=== PATIENT | female | born 1965 | race African-American/Black ===

== ENCOUNTER 2019-05-09 10:16 | Inpatient (IN) | payer OTHER ==
[2019-05-09 10:35] VITALS: BMI 22.1
--- NOTE | 2019-05-09 11:28 | HP ---
CIWA Score Nausea/Vomitin Muscle Tremors: 2 Anxiety: 0-No Anxiety, at Ease Agitation: 2 Paroxysmal Sweats: No Perspiration Orientation: 0-Oriented Tacttile Disturbances: 0-None Auditory Disturbances: 0-None Visual Disturbances: 0-None Headache: 4-Moderately Severe CIWA-Ar Total Score: 10 - Admission Criteria OASAS Guidelines: Admission for Medically Managed Detox: Requires at least one of the followin. CIWA greater than 12 2. Seizures within the past 24 hours 3. Delirium tremens within the past 24 hours 4. Hallucinations within the past 24 hours 5. Acute intervention needed for co occurring medical disorder 6. Acute intervention needed for co occurring psychiatric disorder 7. Severe withdrawal that cannot be handled at a lower level of care (continued vomiting, continued diarrhea, abnormal vital signs) requiring intravenous medication and/or fluids 8. Admission ROS [facility] - HPI Allergies/Adverse Reactions: Allergies Allergy/AdvReac Type Severity Reaction Status Date / Time No Known Allergies Allergy Verified 05/09/19 10:30 History of Present Illness: pt here requesting detox from etoh use , reports 1 case of beer x 2 years , latest use yesterday , starts drinking in the mornings , denies seizures, blackouts , denies tremors , current symptoms as above , referred by outpt program [facility] . cocaine : 100 $/ day via inhalation x 10 years tobacco : 1 cig/day PMHX : denies PSHX : denies meds - denies Psych : denies Exam Limitations: No Limitations - Ebola screening Have you traveled outside of the country in the last 21 days: No Have you had contact with anyone from an Ebola affected area: No Do you have a fever: No - Review of Systems Constitutional: No Symptoms Reported EENT: reports: Other (glasses dentures upper and lower) Respiratory: reports: No Symptoms reported Cardiac: reports: No Symptoms Reported GI: reports: See HPI : reports: No Symptoms Reported Musculoskeletal: reports: No Symptoms Reported Integumentary: reports: No Symptoms Reported Neuro: reports: Headache Endocrine: reports: No Symptoms Reported Psychiatric: reports: Orientated x3, Agitated Patient History - Smoking Cessation Smoking history: Current some day smoker Have you smoked in the past 12 months: Yes Hx Chewing Tobacco Use: No Initiated information on smoking cessation: No - Substances abused Alcohol Substance route: Oral Frequency: Daily Amount used: 48 16oz can of beers Age of first use: 16 Date of last use: 05/08/19 Crack Substance route: Smoking Frequency: Daily Amount used: $100/day Age of first use: 24 Date of last use: 05/08/19 Admission Physical Exam BHS - Vital Signs Vital Signs: Vital Signs - 24 hr 05/09/19 05/09/19 10:26 11:00 Temperature 97.4 F L 97.4 F L Pulse Rate 77 77 Respiratory 19 19 Rate Blood Pressure 169/97 169/97 - Physical General Appearance: Yes: Mild Distress HEENTM: Yes: EOMI, Hearing grossly Normal, Normocephalic, Normal Voice Respiratory: Yes: Lungs Clear, Normal Breath Sounds, No Respiratory Distress, No Accessory Muscle Use Neck: Yes: No masses,lesions,Nodules, Trachea in good position Cardiology: Yes: Regular Rhythm, Regular Rate, S1, S2 Abdominal: Yes: Non Tender, Soft Musculoskeletal: Yes: Gait Steady Extremities: Yes: Normal Range of Motion, Non-Tender, Tremors Neurological: Yes: Fully Oriented, Alert, Motor Strength 5/5 Integumentary: Yes: Warm - Diagnostic (1) Alcohol use disorder Current Visit: Yes Status: Acute (2) Cocaine dependence Current Visit: Yes Status: Chronic Qualifiers: Substance use status: uncomplicated Qualified Code(s): F14.20 - Cocaine dependence, uncomplicated Breathalyzer - Breathalyzer Breathalyzer: 0 Urine Drug Screen - Test Device Lot number: [id number] Expiration date: 01/18/19 - Control Is test valid?: Yes - Results Drug screen NEGATIVE: No Urine drug screen results: GIA-Cocaine Inpatient Rehab Admission - Rehab Decision to Admit Inpatient rehab admission?: No
[2019-05-09] MEDS ORDERED: IBUPROFEN 400 MG TABLET (FP) PO PRN (11:39)
[2019-05-09] MEDS ORDERED: MAGNESIUM CITRATE 300 ML BOTTLE PO PRN (11:39)
[2019-05-09] MEDS ORDERED: BISMUTH SUBSALICYLATE 524 MG/30 ML UD PO PRN (11:39)
[2019-05-09] MEDS ORDERED: MAG HYDROX/AL HYDROX/SIMETH 30 ML UNIT-DOSE CUP PO PRN (11:39)
[2019-05-09] MEDS ORDERED: MAGNESIUM HYDROX 2400MG/30ML ORAL SUSPENSION 30 ML CUP PO PRN (11:39)
[2019-05-09] MEDS ORDERED: MENTHOL/PHENOL 1 EACH UD MM PRN (11:39)
[2019-05-09] MEDS ORDERED: hydrOXYzine PAMOATE 25 MG CAPSULE (FP) PO PRN (11:39)
[2019-05-09] MEDS ORDERED: MELATONIN 5 MG TABLETS PO PRN (11:39)
[2019-05-09] MEDS ORDERED: ACETAMINOPHEN 325 MG TABLET (FP) PO PRN ×2 (11:39)
[2019-05-09] MEDS ORDERED: diazePAM 5 MG TABLET PO PRN (11:40)
[2019-05-09] MEDS: diazePAM 5 MG TABLET PO SCH ×2 (14:50→22:56)
[2019-05-09] MEDS ORDERED: THIAMINE HCL 100 MG TABLET (FP) PO SCH (22:00)
[2019-05-10] MEDS: diazePAM 5 MG TABLET PO SCH ×3 (06:41→08:20)
--- NOTE | 2019-05-10 09:16 | PN ---
S CIWA - CIWA Score Nausea/Vomitin Muscle Tremors: 2 Anxiety: 2 Agitation: 2 Paroxysmal Sweats: 1-Minimal Palms Moist Orientation: 0-Oriented Tacttile Disturbances: 0-None Auditory Disturbances: 0-None Visual Disturbances: 0-None Headache: 2-Mild CIWA-Ar Total Score: 11 BHS Progress Note (SOAP) Subjective: alert,irritable,anxious,interrupted sleep,tremor Objective: 05/10/19 09:17 Vital Signs Temperature 97.7 F 05/10/19 07:26 Pulse Rate 73 05/10/19 07:26 Respiratory Rate 18 05/10/19 07:26 Blood Pressure 145/86 05/10/19 07:26 O2 Sat by Pulse Oximetry (%) labs pending Assessment: 05/10/19 09:18 withdrawal symptom 05/10/19 09:18 Plan: continue detox librium regimen
[2019-05-10] MEDS ORDERED: chlordiazePOXIDE HCL 25 MG CAPSULE PO PRN (09:38)
--- NOTE | 2019-05-10 09:41 | PN ---
BHS Progress Note Note: patient is heavy alcohol dependence,,regimen changed from valium to librium
[2019-05-10] MEDS ORDERED: PRENATAL VITAMINS W/ FOLIC ACID TABLET (FP) PO SCH (10:00)
[2019-05-10] MEDS: chlordiazePOXIDE HCL 25 MG CAPSULE PO SCH ×2 (10:10→18:16)
[2019-05-10 10:12] LABS: HEMATOCRIT 35.7 % (32.4-45.2); HEMOGLOBIN 10.8 GM/dL (10.7-15.3); MCH 20.1 pg (25.7-33.7); MCHC 30.3 g/dl (32.0-36.0); MEAN CELL VOLUME 66.3 fl (80-96); MEAN PLT VOLUME 8.7 fl (7.5-11.1); PLATELET COUNT 300 K/MM3 (134-434); RBC 5.39 M/mm3 (3.60-5.2); RDW 21.7 % (11.6-15.6); WHITE BLOOD COUNT 5.1 K/mm3 (4.0-10.0)
[2019-05-10 10:25] LABS: ALBUMIN 3.2 g/dl (3.4-5.0); BILIRUBIN,TOTAL 0.5 mg/dL (0.2-1); BLOOD UREA NITROGEN 15.3 mg/dL (7-18); CALCIUM 9.4 mg/dL (8.5-10.1); POTASSIUM 4.3 mmol/L (3.5-5.1)
[2019-05-10 17:25] VITALS: BP 143/89; PULSE 71; TEMP 97.2
--- NOTE | 2019-05-10 18:33 | DS ---
[facility] Detox Discharge Summary Admission Date: 05/09/19 Discharge Date: 05/10/19 - History Present History: Alcohol Dependence, Cocaine Dependence Pertinent Past History: NICOT[facility] DEP - Physical Exam Results Vital Signs: Vital Signs Temperature 97.2 F L 05/10/19 17:25 Pulse Rate 71 05/10/19 17:25 Respiratory Rate 18 05/10/19 17:25 Blood Pressure 143/89 05/10/19 17:25 O2 Sat by Pulse Oximetry (%) Pertinent Admission Physical Exam Findings: WITHDRAWAL SX'S Laboratory Tests 05/10/19 05/10/19 05/10/19 07:00 07:00 07:00 WBC 5.1 RBC 5.39 H Hgb 10.8 Hct 35.7 MCV 66.3 L MCH 20.1 L MCHC 30.3 L RDW 21.7 H Plt Count 300 MPV 8.7 Sodium 140 Potassium 4.3 Chloride 106 Carbon Dioxide 30 Anion Gap 5 L BUN 15.3 Creatinine 1.0 Est GFR (CKD-EPI)AfAm 75.01 Est GFR (CKD-EPI)NonAf 64.72 Random Glucose 120 H Calcium 9.4 Total Bilirubin 0.5 AST 19 ALT 21 Alkaline Phosphatase 82 Total Protein 7.0 Albumin 3.2 L RPR Titer Nonreactive - Treatment Hospital Course: Discharged Condition Good Patient has Accepted a Rehab Referral to: [facility] - Medication Discharge Medications: Ambulatory Orders NK [No Known Home Medication] 05/09/19 - Diagnosis (1) Alcohol use disorder Current Visit: Yes Status: Chronic (2) Cocaine dependence Current Visit: Yes Status: Chronic Qualifiers: Substance use status: uncomplicated Qualified Code(s): F14.20 - Cocaine dependence, uncomplicated - AMA Did Patient Leave Against Medical Advice: Yes
[2019-05-11] MEDS ORDERED: diazePAM 5 MG TABLET PO ONE (06:00)
[2019-05-12] MEDS ORDERED: chlordiazePOXIDE HCL 25 MG CAPSULE PO SCH (05:00)
[2019-05-13] MEDS ORDERED: chlordiazePOXIDE HCL 10 MG CAPSULE PO PRN
[2019-05-13] MEDS ORDERED: chlordiazePOXIDE HCL 10 MG CAPSULE PO SCH (05:00)
[2019-05-14] MEDS ORDERED: chlordiazePOXIDE HCL 10 MG CAPSULE PO SCH (05:00)
[2019-05-15] MEDS ORDERED: chlordiazePOXIDE HCL 10 MG CAPSULE PO ONE (05:00)
== END 2019-05-10 18:28 | disposition left against medical advice (07) | DRG 770 ==
LOC: YASAS 10:16 → Y6N 12:29
PROVIDERS: ADMIT Surgery; ATTEND Surgery
PROC: HZ2ZZZZ Detoxification Services for Substance Abuse Treatment (ICD-10-PCS; principal; 2019-05-09)
DX: F10.230 Alcohol dependence with withdrawal, uncomplicated (principal); F14.20 Cocaine dependence, uncomplicated; F17.200 Nicotine dependence, unspecified, uncomplicated
CPT/HCPCS: 36415; 80053; 81025; 85027; 86593

== ENCOUNTER 2019-06-14 09:42 | Inpatient (IN) | payer OTHER ==
[2019-06-14 09:59] VITALS: BMI 24.7
--- NOTE | 2019-06-14 11:02 | HP ---
CIWA Score Nausea/Vomitin-No Nausea/No Vomiting Muscle Tremors: 1-None Visible, but [place] Anxiety: 2 Agitation: 2 Paroxysmal Sweats: No Perspiration Orientation: 0-Oriented Tacttile Disturbances: 0-None Auditory Disturbances: 0-None Visual Disturbances: 0-None Headache: 0-None Present CIWA-Ar Total Score: 5 - Admission Criteria OASAS Guidelines: Admission for Medically Managed Detox: Requires at least one of the followin. CIWA greater than 12 2. Seizures within the past 24 hours 3. Delirium tremens within the past 24 hours 4. Hallucinations within the past 24 hours 5. Acute intervention needed for co occurring medical disorder 6. Acute intervention needed for co occurring psychiatric disorder 7. Severe withdrawal that cannot be handled at a lower level of care (continued vomiting, continued diarrhea, abnormal vital signs) requiring intravenous medication and/or fluids 8. Admitting History and Physical - Smoking History Smoking history: Current some day smoker Have you smoked in the past 12 months: Yes Aproximately how many cigarettes per day: 1 Admission ROS [facility] Allergies/Adverse Reactions: Allergies Allergy/AdvReac Type Severity Reaction Status Date / Time No Known Allergies Allergy Verified 06/14/19 09:54 History of Present Illness: pt here requesting detox from etoh use , reports 1 case of beer x 2 years , latest use this morning , starts drinking in the mornings , denies seizures , blackouts , denies tremors , current symptoms as above , referred by outpt program [facility] [place] will be transferred to [place] due to failure of tx . cocaine : 100 $/ day via inhalation x 10 years tobacco : 1 cig/day PMHX : denies PSHX : denies meds - denies Psych : denies Exam Limitations: No Limitations - Ebola screening Have you traveled outside of the country in the last 21 days: No (N) Have you had contact with anyone from an Ebola affected area: No Do you have a fever: No - Review of Systems Constitutional: No Symptoms Reported EENT: reports: Other (glasses , dentures) Respiratory: reports: No Symptoms reported Cardiac: reports: No Symptoms Reported GI: reports: No Symptoms Reported : reports: No Symptoms Reported Musculoskeletal: reports: No Symptoms Reported Integumentary: reports: No Symptoms Reported Neuro: reports: No Symptoms reported Endocrine: reports: No Symptoms Reported Psychiatric: reports: Orientated x3, Anxious Patient History - Patient Medical History Hx Asthma: Yes Hx Chronic Obstructive Pulmonary Disease (COPD): No Hx Cardiac Disorders: No Hx Hypertension: No Hx Seizures: No Hx Diabetes: No Hx Gastrointestinal Disorders: No Hx Genitourinary Disorders: No Hx Sexually Transmitted Disorders: No Hx Renal Disease (ESRD): No Hx Depression: No Hx Suicide Attempt: No Hx Schizophrenia: No - Patient Surgical History Past Surgical History: Yes - Smoking Cessation Smoking history: Current some day smoker Have you smoked in the past 12 months: Yes Aproximately how many cigarettes per day: 1 Hx Chewing Tobacco Use: No Initiated information on smoking cessation: No - Substances abused Alcohol Substance route: Oral Frequency: Daily Amount used: 48 16oz can of beers Age of first use: 16 Date of last use: 06/14/19 Crack Substance route: Smoking Frequency: Daily Amount used: $100-$200 Age of first use: 24 Date of last use: 06/13/19 Admission Physical Exam [facility] - Vital Signs Vital Signs: Vital Signs - 24 hr 06/14/19 09:48 Temperature 97.4 F L Pulse Rate 64 Respiratory 16 Rate Blood Pressure 159/102 H - Physical General Appearance: Yes: Mild Distress, Alcohol on Breath, Intoxicated, Anxious HEENTM: Yes: EOMI, Hearing grossly Normal, Normocephalic, Normal Voice, Other ( edentulous) Respiratory: Yes: Chest Non-Tender, Lungs Clear, Normal Breath Sounds, No Respiratory Distress, No Accessory Muscle Use Neck: Yes: No masses,lesions,Nodules, Trachea in good position Cardiology: Yes: Regular Rhythm, Regular Rate, S1, S2 Abdominal: Yes: Non Tender, Soft Musculoskeletal: Yes: Gait Steady Extremities: Yes: Normal Range of Motion, Non-Tender Neurological: Yes: Fully Oriented, Alert, Motor Strength 5/5 Integumentary: Yes: Warm - Diagnostic (1) Alcohol use disorder Current Visit: Yes Status: Chronic (2) Cocaine dependence Current Visit: Yes Status: Chronic Qualifiers: Substance use status: uncomplicated Qualified Code(s): F14.20 - Cocaine dependence, uncomplicated Cleared for Admission S - Detox or Rehab [facility] Level of Care: Observation Bed Breathalyzer - Breathalyzer Breathalyzer: 0 Urine Drug Screen - Test Device Lot number: [id number] Expiration date: 02/17/21 - Control Is test valid?: Yes - Results Drug screen NEGATIVE: No Urine drug screen results: GIA-Cocaine, BZO-Benzodiazepines Inpatient Rehab Admission - Rehab Decision to Admit Inpatient rehab admission?: No - Rehab Admission Criteria Previous failed treatment: No Poor recovery environment: No Lacks judgement: No Patient is meeting Inpatient Rehab admission criteria:: Yes
[2019-06-14] MEDS ORDERED: MAG HYDROX/AL HYDROX/SIMETH 30 ML UNIT-DOSE CUP PO PRN (11:19)
[2019-06-14] MEDS ORDERED: MENTHOL/PHENOL 1 EACH UD MM PRN (11:19)
[2019-06-14] MEDS ORDERED: BISMUTH SUBSALICYLATE 262 MG/15 ML BTL PO PRN (11:19)
[2019-06-14] MEDS ORDERED: ACETAMINOPHEN 325 MG TABLET (FP) PO PRN ×2 (11:19)
[2019-06-14] MEDS ORDERED: hydrOXYzine PAMOATE 25 MG CAPSULE (FP) PO PRN (11:19)
[2019-06-14] MEDS ORDERED: IBUPROFEN 400 MG TABLET (FP) PO PRN (11:19)
[2019-06-14] MEDS ORDERED: MAGNESIUM CITRATE 300 ML BOTTLE PO PRN (11:19)
[2019-06-14] MEDS ORDERED: MAGNESIUM HYDROX 2400MG/30ML ORAL SUSPENSION 30 ML CUP PO PRN (11:19)
[2019-06-14] MEDS ORDERED: diazePAM 5 MG TABLET PO PRN (11:21)
[2019-06-14] MEDS: diazePAM 5 MG TABLET PO SCH ×2 (13:42→22:32)
[2019-06-14] MEDS: MELATONIN 5 MG TABLETS PO PRN (22:32)
[2019-06-14] MEDS: THIAMINE HCL 100 MG TABLET (FP) PO SCH (22:33)
[2019-06-14] MEDS ORDERED: cloNIDine HCL 0.1 MG TABLET PO ONE (23:10)
[2019-06-15] MEDS: diazePAM 5 MG TABLET PO SCH ×3 (06:29→22:35)
[2019-06-15] MEDS: PRENATAL VITAMINS W/ FOLIC ACID TABLET (FP) PO SCH (10:35)
[2019-06-15] MEDS ORDERED: PNEUMOCOCCAL 23 VACCINE 0.5 ML VIAL IM ONE ×2 (12:00→17:00)
[2019-06-15] MEDS ORDERED: PNEUMOC 13-VAL CONJ-DIP CRM/PF 0.5 ML DISP.SYRIN IM ONE (12:00)
[2019-06-15 12:29] LABS: HEMATOCRIT 34.6 % (32.4-45.2); HEMOGLOBIN 10.6 GM/dL (10.7-15.3); MCH 20.7 pg (25.7-33.7); MCHC 30.5 g/dl (32.0-36.0); MEAN CELL VOLUME 67.9 fl (80-96); PLATELET COUNT 251 K/MM3 (134-434); WHITE BLOOD COUNT 4.6 K/mm3 (4.0-10.0)
[2019-06-15 12:34] LABS: ALBUMIN 2.8 g/dl (3.4-5.0); BILIRUBIN,TOTAL 0.4 mg/dL (0.2-1); BLOOD UREA NITROGEN 15.2 mg/dL (7-18); CALCIUM 9.1 mg/dL (8.5-10.1); CREATININE 0.9 mg/dL (0.55-1.3); TOT PROT 6.2 g/dl (6.4-8.2)
--- NOTE | 2019-06-15 13:19 | PN ---
S CIWA - CIWA Score Nausea/Vomitin-No Nausea/No Vomiting Muscle Tremors: None Anxiety: 2 Agitation: 0-Normal Activity Paroxysmal Sweats: 3 Orientation: 0-Oriented Tacttile Disturbances: 0-None Auditory Disturbances: 0-None Visual Disturbances: 0-None Headache: 2-Mild CIWA-Ar Total Score: 7 BHS Progress Note (SOAP) Subjective: c/o anxiety, sweats, and headache. Objective: 06/15/19 13:18 Vital Signs 06/15/19 06/15/19 06:45 08:00 Temperature 97.5 F L 97.7 F Pulse Rate 62 66 Respiratory 17 18 Rate Blood Pressure 132/86 151/98 Lab Results WBC 4.6 K/mm3 (4.0-10.0) 06/15/19 07:55 RBC 5.10 M/mm3 (3.60-5.2) 06/15/19 07:55 Hgb 10.6 GM/dL (10.7-15.3) L 06/15/19 07:55 Hct 34.6 % (32.4-45.2) 06/15/19 07:55 MCV 67.9 fl (80-96) L 06/15/19 07:55 MCHC 30.5 g/dl (32.0-36.0) L 06/15/19 07:55 RDW 20.0 % (11.6-15.6) H 06/15/19 07:55 Plt Count 251 K/MM3 (134-434) 06/15/19 07:55 Sodium 140 mmol/L (136-145) 06/15/19 07:55 Potassium 4.0 mmol/L (3.5-5.1) 06/15/19 07:55 Chloride 104 mmol/L (98-107) 06/15/19 07:55 Carbon Dioxide 28 mmol/L (21-32) 06/15/19 07:55 Anion Gap 8 MMOL/L (8-16) 06/15/19 07:55 BUN 15.2 mg/dL (7-18) 06/15/19 07:55 Creatinine 0.9 mg/dL (0.55-1.3) 06/15/19 07:55 Random Glucose 161 mg/dL (74-106) H 06/15/19 07:55 Calcium 9.1 mg/dL (8.5-10.1) 06/15/19 07:55 Labs noted. Assessment: 06/15/19 13:18 AOX3, in no acute respiratory distress. Full ROM, ambulating in the unit. withdrawal symptoms. Plan: continue detox.
[2019-06-15] MEDS: THIAMINE HCL 100 MG TABLET (FP) PO SCH (22:35)
[2019-06-16] MEDS: diazePAM 5 MG TABLET PO SCH ×2 (06:51→18:16)
[2019-06-16] MEDS: PRENATAL VITAMINS W/ FOLIC ACID TABLET (FP) PO SCH (10:42)
--- NOTE | 2019-06-16 16:10 | PN ---
S CIWA - CIWA Score Nausea/Vomitin-Mild Nausea/No Vomiting Muscle Tremors: 2 Anxiety: 2 Agitation: 1-Slight > Activity Paroxysmal Sweats: 2 Orientation: 0-Oriented Tacttile Disturbances: 0-None Auditory Disturbances: 0-None Visual Disturbances: 0-None Headache: 0-None Present CIWA-Ar Total Score: 8 BHS Progress Note (SOAP) Subjective: Feels ok, medication helpful Objective: 06/16/19 16:05 Last Vital Signs Temp Pulse Resp BP Pulse Ox 97.2 F L 70 16 149/90 06/16/19 14:00 06/16/19 14:00 06/16/19 14:00 06/16/19 14:00 Elevated b/p noted: has htn (on med) Laboratory Tests 06/15/19 06/15/19 06/15/19 07:55 07:55 07:55 WBC 4.6 RBC 5.10 Hgb 10.6 L Hct 34.6 MCV 67.9 L MCH 20.7 L MCHC 30.5 L RDW 20.0 H Plt Count 251 MPV 9.0 Sodium 140 Potassium 4.0 Chloride 104 Carbon Dioxide 28 Anion Gap 8 BUN 15.2 Creatinine 0.9 Est GFR (CKD-EPI)AfAm 85.20 Est GFR (CKD-EPI)NonAf 73.51 Random Glucose 161 H Calcium 9.1 Total Bilirubin 0.4 AST 21 ALT 24 Alkaline Phosphatase 69 Total Protein 6.2 L Albumin 2.8 L RPR Titer Nonreactive Labs reviewed: serum glucose 161 (denies dm), microcytic anemia noted Assessment: 06/16/19 16:08 Withdrawal sxs Noted with hyperglycemia and microcytic anemia Plan: Continue detox Encouraged PO water intake Detox protocol adjusted for one more day on 06/18/19 due to increased withdrawal sxs Hyperglycemia: patient denies DM, could be r/t alcoholism; POC FS glucose x 1, repeat fasting glucose, send A1c Microcytic anemia: could be r/t alcoholism, send iron studies
[2019-06-16] MEDS ORDERED: cloNIDine HCL 0.1 MG TABLET PO ONE (17:55)
[2019-06-16] MEDS: MELATONIN 5 MG TABLETS PO PRN (23:12)
[2019-06-16] MEDS: THIAMINE HCL 100 MG TABLET (FP) PO SCH (23:12)
[2019-06-17] MEDS ORDERED: diazePAM 5 MG TABLET PO ONE (06:00)
[2019-06-17] MEDS: PRENATAL VITAMINS W/ FOLIC ACID TABLET (FP) PO SCH (11:06)
--- NOTE | 2019-06-17 13:15 | PN ---
S CIWA - CIWA Score Nausea/Vomitin-No Nausea/No Vomiting Muscle Tremors: 1-None Visible, but [place] Anxiety: 1-Mildly Anxious Agitation: 1-Slight > Activity Paroxysmal Sweats: No Perspiration Orientation: 0-Oriented Tacttile Disturbances: 0-None Auditory Disturbances: 0-None Visual Disturbances: 0-None Headache: 1-Very Mild CIWA-Ar Total Score: 4 BHS Progress Note (SOAP) Subjective: alert,anxious,interrupted sleep Objective: 06/17/19 13:14 Vital Signs Temperature 96.3 F L 06/17/19 09:50 Pulse Rate 69 06/17/19 09:50 Respiratory Rate 18 06/17/19 09:50 Blood Pressure 150/79 06/17/19 09:50 O2 Sat by Pulse Oximetry (%) Assessment: 06/17/19 13:14 no withdrawal symptom Plan: stable for discharge today,follow up with rehab a arrangement
--- NOTE | 2019-06-17 13:18 | DS ---
[facility] Detox Discharge Summary Admission Date: 06/14/19 Discharge Date: 06/17/19 - History Present History: Alcohol Dependence, Cocaine Dependence Additional Comments: follow up with rehab as arrangement - Physical Exam Results Vital Signs: Vital Signs Temperature 96.3 F L 06/17/19 09:50 Pulse Rate 69 06/17/19 09:50 Respiratory Rate 18 06/17/19 09:50 Blood Pressure 150/79 06/17/19 09:50 O2 Sat by Pulse Oximetry (%) Pertinent Admission Physical Exam Findings: withdrawal signs and symptom Laboratory Last Values WBC 4.6 K/mm3 (4.0-10.0) 06/15/19 07:55 RBC 5.10 M/mm3 (3.60-5.2) 06/15/19 07:55 Hgb 10.6 GM/dL (10.7-15.3) L 06/15/19 07:55 Hct 34.6 % (32.4-45.2) 06/15/19 07:55 MCV 67.9 fl (80-96) L 06/15/19 07:55 MCH 20.7 pg (25.7-33.7) L 06/15/19 07:55 MCHC 30.5 g/dl (32.0-36.0) L 06/15/19 07:55 RDW 20.0 % (11.6-15.6) H 06/15/19 07:55 Plt Count 251 K/MM3 (134-434) 06/15/19 07:55 MPV 9.0 fl (7.5-11.1) 06/15/19 07:55 Sodium 140 mmol/L (136-145) 06/15/19 07:55 Potassium 4.0 mmol/L (3.5-5.1) 06/15/19 07:55 Chloride 104 mmol/L (98-107) 06/15/19 07:55 Carbon Dioxide 28 mmol/L (21-32) 06/15/19 07:55 Anion Gap 8 MMOL/L (8-16) 06/15/19 07:55 BUN 15.2 mg/dL (7-18) 06/15/19 07:55 Creatinine 0.9 mg/dL (0.55-1.3) 06/15/19 07:55 Est GFR (CKD-EPI)AfAm 85.20 06/15/19 07:55 Est GFR (CKD-EPI)NonAf 73.51 06/15/19 07:55 POC Glucometer 160 UNITS (80-120) 06/16/19 16:21 Random Glucose 161 mg/dL (74-106) H 06/15/19 07:55 Calcium 9.1 mg/dL (8.5-10.1) 06/15/19 07:55 Total Bilirubin 0.4 mg/dL (0.2-1) 06/15/19 07:55 AST 21 U/L (15-37) 06/15/19 07:55 ALT 24 U/L (13-61) 06/15/19 07:55 Alkaline Phosphatase 69 U/L (45-117) 06/15/19 07:55 Total Protein 6.2 g/dl (6.4-8.2) L 06/15/19 07:55 Albumin 2.8 g/dl (3.4-5.0) L 06/15/19 07:55 POC Urine HCG, Qual Negative 06/14/19 10:21 RPR Titer Nonreactive (NONREACTIVE) 06/15/19 07:55 Vital Signs Temperature 96.3 F L 06/17/19 09:50 Pulse Rate 69 06/17/19 09:50 Respiratory Rate 18 06/17/19 09:50 Blood Pressure 150/79 06/17/19 09:50 O2 Sat by Pulse Oximetry (%) - Treatment Hospital Course: Detox Protocol Followed, Detoxed Safely, Responded well, Discharged Condition Good, Rehab Referral Accepted Patient has Accepted [facility] - Medication Discharge Medications: Ambulatory Orders NK [No Known Home Medication] 05/09/19 - Diagnosis (1) Alcohol dependence with uncomplicated withdrawal Current Visit: Yes Status: Acute (2) Cocaine dependence Current Visit: Yes Status: Chronic Qualifiers: Substance use status: uncomplicated Qualified Code(s): F14.20 - Cocaine dependence, uncomplicated - AMA Did Patient Leave Against Medical Advice: No
[2019-06-17 13:27] VITALS: BP 137/76
[2019-06-17 18:01] VITALS: PULSE 76; TEMP 98.9
[2019-06-18] MEDS ORDERED: diazePAM 5 MG TABLET PO ONE (06:00)
== END 2019-06-17 17:36 | disposition other institution (70) | DRG 774 ==
LOC: YASAS 09:42 → Y6N 11:31
PROVIDERS: ADMIT Allergy & Immunology; ATTEND Allergy & Immunology
PROC: HZ2ZZZZ Detoxification Services for Substance Abuse Treatment (ICD-10-PCS; principal; 2019-06-14)
DX: F10.230 Alcohol dependence with withdrawal, uncomplicated (principal); F10.220 Alcohol dependence with intoxication, uncomplicated; F14.20 Cocaine dependence, uncomplicated; F17.210 Nicotine dependence, cigarettes, uncomplicated; I10 Essential (primary) hypertension; R73.9 Hyperglycemia, unspecified; D50.9 Iron deficiency anemia, unspecified; J45.909 Unspecified asthma, uncomplicated
CPT/HCPCS: 36415; 80053; 81025; 82962; 85027; 86593; 90732; G0009; J0735

== ENCOUNTER 2019-06-17 17:28 | Inpatient (IN) | payer OTHER ==
[2019-06-17] MEDS ORDERED: MAGNESIUM CITRATE 300 ML BOTTLE PO PRN (17:54)
[2019-06-17] MEDS ORDERED: MAGNESIUM HYDROX 2400MG/30ML ORAL SUSPENSION 30 ML CUP PO PRN (17:54)
[2019-06-17] MEDS ORDERED: IBUPROFEN 400 MG TABLET (FP) PO PRN (17:54)
[2019-06-17] MEDS ORDERED: ACETAMINOPHEN 325 MG TABLET (FP) PO PRN (17:54)
[2019-06-17] MEDS ORDERED: P-EPHED 60MG/TRIPROLIDI 2.5MG TABLET PO PRN (17:54)
[2019-06-17] MEDS ORDERED: MAG HYDROX/AL HYDROX/SIMETH 30 ML UNIT-DOSE CUP PO PRN (17:54)
[2019-06-17] MEDS ORDERED: MENTHOL/PHENOL 1 EACH UD MM PRN (17:54)
[2019-06-17] MEDS ORDERED: guaiFENesin 200 MG/10 ML 10 ML UNIT-DOSE CUPS PO PRN (17:54)
[2019-06-17] MEDS ORDERED: hydrOXYzine PAMOATE 50 MG CAPSULE (FP) PO PRN (17:54)
--- NOTE | 2019-06-17 17:56 | HP ---
[facility] Re[facility] Assess/Revision - Admission History Admitted to Rehab from: [facility] Date of Admission to Rehab: 06/17/19 - Findings Detox History & Physical reviewed: Yes Concur with findings: Yes Comments/Additional Findings: Admit to [facility] for rehab services. Inpatient Rehab Admission - Rehab Decision to Admit Inpatient rehab admission?: Yes - Initial Determination Are CD services needed?: Yes Free of communicable disease: Yes Not in need of hospitalization: Yes - Rehab Admission Criteria Previous failed treatment: Yes Poor recovery environment: Yes Comorbidities: Yes Lacks judgement: Yes Patient is meeting Inpatient Rehab admission criteria:: Yes
[2019-06-17] MEDS: MELATONIN 5 MG TABLETS PO PRN (21:50)
[2019-06-17] MEDS: THIAMINE HCL 100 MG TABLET (FP) PO SCH (21:50)
[2019-06-18] MEDS: LOPERAMIDE HCL 2 MG CAPSULE PO PRN ×3 (02:41→22:00)
[2019-06-18] MEDS: PRENATAL VITAMINS W/ FOLIC ACID TABLET (FP) PO SCH (10:50)
[2019-06-18] MEDS: MELATONIN 5 MG TABLETS PO PRN (21:59)
[2019-06-18] MEDS: THIAMINE HCL 100 MG TABLET (FP) PO SCH (21:59)
[2019-06-19 07:05] VITALS: BP 135/86; PULSE 76; TEMP 98.1
[2019-06-19] MEDS: PRENATAL VITAMINS W/ FOLIC ACID TABLET (FP) PO SCH (09:06)
--- NOTE | 2019-06-19 13:33 | DS ---
[facility] Rehab Discharge Summary - [facility] Rehab Discharge Summary Admission Date: 06/17/19 Discharge Date: 06/19/19 - History Present History: Alcohol dependence, Cocaine dependence Pertinent Past History: pt here admitted to rehab for etoh use, eports 1 case of beer x 2 years starts drinking in the mornings, denies seizures, blackouts, denies tremors, cocaine : 100 $/ day via inhalation x 10 years tobacco : 1 cig/day PMHX : denies PSHX : denies meds - denies Psych : denies - Discharge Physical Exam Vital Signs: Vital Signs Temperature 98.1 F 06/19/19 07:04 Pulse Rate 76 06/19/19 07:04 Respiratory Rate 18 06/19/19 07:04 Blood Pressure 135/86 06/19/19 07:04 O2 Sat by Pulse Oximetry (%) Pertinent Admission Physical Exam Findings: - Physical General Appearance: No apparent distress HEENTM: Normocephalic,edentulous Respiratory: Lungs Clear, Neck: supple Cardiology: S1, S2 Abdominal:+BS Musculoskeletal: Gait Steady, full Range of Motion, Neurological: CN 2-12 intact, Motor Strength 5/5 - Treatment Discharge Condition: Outpatient referral accepted (Patient plans to go to [facility] for aftercare. Medically stable for discharge.) Hospital Course: Attended groups, had 1:1 meeting with counselor, was adherent to her treatment and medication regimen. - Medication Discharge Medications: Ambulatory Orders NK [No Known Home Medication] 05/09/19 - Medication-Assisted Treatment (MAT) Medication-Assisted Treatment (MAT): No - Discharge Instructions Diet, activity, other medical instructions: Diet: as tolerated Activity: as tolerated Other medical instructions: Please follow up with aftercare referral. - Follow-up Referral Minutes to complete discharge: 20 - AMA Did Patient Leave Against Medical Advice: No Additional Comments: Patient did not have medications that needed to be transmitted to the pharmacy.
== END 2019-06-19 13:34 | disposition home or self-care (01) | DRG 772 ==
LOC: YASAS 17:28 → Y3E 17:32
PROVIDERS: ADMIT Neuromusculoskeletal Medicine & OMM; ATTEND Neuromusculoskeletal Medicine & OMM
PROC: HZ42ZZZ Group Counseling for Substance Abuse Treatment, Cognitive-Behavioral (ICD-10-PCS; principal; 2019-06-17)
DX: F10.20 Alcohol dependence, uncomplicated (principal); F14.20 Cocaine dependence, uncomplicated